=== PATIENT | male | born 1955 | race Caucasian/White ===

== ENCOUNTER 2017-03-25 18:16 | Emergency (ER) | payer OTHER ==
[2017-03-25 18:25] VITALS: BP 146/83; PULSE 73; TEMP 98.6; BMI 33.7
--- NOTE | 2017-03-25 18:32 | PDOC ---
History of Present Illness <Lyudmila Merchant - Last Filed: 03/25/17 18:28> - General History Source: Patient Exam Limitations: No Limitations - History of Present Illness Initial Comments: 03/25/17 19:09 62 year old RHD male with no significant PMH, who presents to the emergency room complaining of 4 days of progressively worsening right shoulder pain that radiates to the right side of the neck. The shoulder pain is preventing him from sleeping at night . The neck pain is exacerbated when nodding his head. The patient states that he visited his PCP earlier in the week who prescribed ibuprofen 800mg, percocet, a muscle relaxer, and a shot in the lower back which provided no relief. The patient denies any recent heavy lifting or recent trauma. <Antonia Smith - Last Filed: 03/25/17 19:11> - General Chief Complaint: Pain, Acute Stated Complaint: NECK,BACK AND LEFT ARM PAIN X 4 DAYS Time Seen by Provider: 03/25/17 18:21 Past History - Past Medical History COPD: No Kidney Stones: Yes - Suicide/Smoking/Psychosocial Hx Smoking History: Never smoked Hx Alcohol Use: No Drug/Substance Use Hx: No Substance Use Type: None <Lyudmila Merchant - Last Filed: 03/25/17 18:28> <Antonia Smith - Last Filed: 03/25/17 19:11> - Past Medical History Allergies/Adverse Reactions: Allergies Allergy/AdvReac Type Severity Reaction Status Date / Time No Known Allergies Allergy Verified 03/25/17 18:17 Home Medications: Ambulatory Orders Ibuprofen 800 mg PO ASDIR 03/25/17 Oxycodone HCl/Acetaminophen [Percocet 5-325 mg Tablet] 2 tab PO Q6H 03/25/17 Review of Systems - Review of Systems Comments:: 03/25/17 19:10 CONSTITUTIONAL: Absent: fever, no chills, no fatigue EYES: Absent: visual changes ENT: Absent: ear pain, no sore throat CARDIOVASCULAR: Absent: chest pain, no palpitations RESPIRATORY: Absent: cough, no SOB GI: Absent: abdominal pain, no nausea, no vomiting, no constipation, no diarrhea GENITOURINARY: Absent: dysuria, no frequency, no hematuria MUSCULOSKELETAL: +left neck pain, left shoulder pain SKIN: Absent: rash <Antonia Smith - Last Filed: 03/25/17 19:11> *Physical Exam - Vital Signs Last Vital Signs Temp Pulse Resp BP Pulse Ox 98.6 F 73 18 146/83 97 03/25/17 18:17 03/25/17 18:17 03/25/17 18:17 03/25/17 18:17 03/25/17 18:17 <Lyudmila Merchant - Last Filed: 03/25/17 18:28> - Vital Signs Last Vital Signs Temp Pulse Resp BP Pulse Ox 98.6 F 73 18 146/83 97 03/25/17 18:17 03/25/17 18:17 03/25/17 18:17 03/25/17 18:17 03/25/17 18:17 - Physical Exam Comments: 03/25/17 19:10 GENERAL: Well-appearing, well-nourished. No apparent distress. HEENT: Normocephalic, atraumatic. PERRL, EOM intact. CARDIOVASCULAR: Normal S1, S2. Regular rate and rhythm. PULMONARY: Clear to auscultation bilaterally. ABDOMEN: Soft, non-distended, non-tender. EXTREMITIES: +there is pain in the left shoulder with active flexion and compression. There is tenderness along the C-spine. Normal ROM in all four extremities. No gross deformities. SKIN: Warm, dry. No rash NEUROLOGICAL: No focal neurological deficits. <Antonia Smith - Last Filed: 03/25/17 19:11> *DC/Admit/Observation/Transfer <Lyudmila Merchant - Last Filed: 03/25/17 18:28> - Attestations Scribe Attestion: 03/25/17 19:11 Documentation prepared by NISA Dorado, acting as associate medical director for Lyudmila Merchant MD. <Antonia Smith - Last Filed: 03/25/17 19:11> - Discharge Dispostion Condition at time of disposition: Stable
--- NOTE | 2017-03-25 19:23 | PDOC ---
*Physical Exam - Vital Signs Last Vital Signs Temp Pulse Resp BP Pulse Ox 98.6 F 73 18 146/83 97 03/25/17 18:17 03/25/17 18:17 03/25/17 18:17 03/25/17 18:17 03/25/17 18:17 Progress Note - Progress Note Progress Note: Care of this patient received from Dr. Merchant. X-rays of cervical spine/left shoulder/left elbow revealed straightening of the lordotic curve of the cervical spine and DJD of shoulder/elbow joints. No acute fracture/dislocation. Results discussed with the patient and his . They state that the patient has had little relief with medications prescribed by his PMD. Patient will be given Toradol 60 mg IM now. Prescriptions for diclofenac 75 mg twice a day as needed; patient will also be started on tizanidine 2 mg up to 3 times a day as needed for muscle spasm. Since patient does not have an orthopedist, he will be referred to Dr. Tran/Dr. Montoya. Referral information will be given to the patient and follow-up should be within the next 5 days. *DC/Admit/Observation/Transfer Diagnosis at time of Disposition: Left shoulder tendinitis Cervical strain, acute Qualifiers: Encounter type: initial encounter Qualified Code(s): S16.1XXA - Strain of muscle, fascia and tendon at neck level, initial encounter - Discharge Dispostion Disposition: HOME Condition at time of disposition: Stable - Prescriptions Prescriptions: Diclofenac Sodium [Voltaren -] 75 mg PO BID PRN #20 tablet. PRN Reason: Pain Tizanidine HCl 2 mg PO TID PRN #12 tablet PRN Reason: Muscle Spasms - Referrals Referrals: Shawn Tran MD [Staff Physician] - Call tomorrow - Patient Instructions Printed Discharge Instructions: DI for Shoulder Tendinopathy Additional Instructions: Stop ibuprofen and previously prescribed muscle relaxant Diclofenac 75 mg twice a day; take with food Warm compresses to areas of muscle spasm Tizanidine 2 mg up to 3 times a day for muscle spasms Percocet as needed for severe pain as previously prescribed Follow-up within the next 5 days with orthopedist (Drs. Tran/Jan) Call the orthopedic office in the morning to make an appointment - Post Discharge Activity
[2017-03-25] MEDS ORDERED: KETOROLAC TROMETHAMINE 60 MG/2 ML VIAL IM ONE (19:28)
[2017-03-25] MEDS ORDERED: KETOROLAC TROMETHAMINE 60 MG/2 ML VIAL ONE (19:31)
== END 2017-03-25 19:43 | disposition home or self-care (01) ==
LOC: FER 18:16
PROC: 3E0233Z Introduction of Anti-inflammatory into Muscle, Percutaneous Approach (ICD-10-PCS; principal; 2017-03-25)
DX: M75.92 Shoulder lesion, unspecified, left shoulder (principal)
CPT/HCPCS: 72050-TC; 73030-TC-LT; 73070-TC-LT; 99282-25

== ENCOUNTER 2021-09-01 09:57 | Emergency (ER) | payer OTHER, MEDICARE ==
[2021-09-01 10:25] VITALS: BP 162/99; PULSE 81; TEMP 98.2; BMI 36.8
[2021-09-01] MEDS ORDERED: BEBTELOVIMAB (EUA) 175 MG/2 ML VIAL IVPUSH ONE (10:38)
== END 2021-09-01 19:48 | disposition home or self-care (01) ==
LOC: JER 09:57 → JCOVINFU 09:57
PROC: 3E033GC Introduction of Other Therapeutic Substance into Peripheral Vein, Percutaneous Approach (ICD-10-PCS; principal; 2021-09-01)
DX: U07.1 COVID-19 (principal)
CPT/HCPCS: 99284-25; M0222; Q0222